=== PATIENT | female | born 1950 | race Caucasian/White ===

== ENCOUNTER 2019-04-07 08:45 | Outpatient (CLI) | payer OTHER | END 2019-04-07 08:50 | disposition home or self-care (01) | LOC: LAB 08:45 | DX: I11.0 Hypertensive heart disease with heart failure (principal); D53.8 Other specified nutritional anemias; E11.8 Type 2 diabetes mellitus with unspecified complications; E78.2 Mixed hyperlipidemia; N39.0 Urinary tract infection, site not specified; E03.8 Other specified hypothyroidism; M06.1 Adult-onset Still's disease; E55.9 Vitamin D deficiency, unspecified ==

== ENCOUNTER 2019-09-30 07:27 | Outpatient (CLI) | payer OTHER | END 2019-09-30 07:40 | disposition home or self-care (01) | LOC: LAB 07:27 | DX: D64.89 Other specified anemias (principal); N39.0 Urinary tract infection, site not specified; R10.84 Generalized abdominal pain; E03.8 Other specified hypothyroidism; E78.49 Other hyperlipidemia; E11.9 Type 2 diabetes mellitus without complications ==

== ENCOUNTER 2019-10-13 09:06 | Outpatient (CLI) | payer OTHER | END 2019-10-13 10:11 | disposition home or self-care (01) | LOC: LAB 09:06 | DX: I10 Essential (primary) hypertension (principal); R79.1 Abnormal coagulation profile; R06.89 Other abnormalities of breathing ==

== ENCOUNTER → 2020-02-16 | Outpatient (CLI) | payer OTHER | END | disposition home or self-care (01) | LOC: MAMO-SONO 10:15 → SONOGRAMA 10:43 | PROVIDERS: ATTEND Physical Medicine & Rehabilitation | DX: M75.41 Impingement syndrome of right shoulder (principal) ==

== ENCOUNTER 2020-05-21 08:18 | Outpatient (CLI) | payer OTHER | END 2020-05-21 08:49 | disposition home or self-care (01) | LOC: LAB 08:18 | PROVIDERS: ATTEND Internal Medicine Endocrinology, Diabetes & Metabolism | DX: E04.8 Other specified nontoxic goiter (principal); I11.0 Hypertensive heart disease with heart failure; D53.8 Other specified nutritional anemias; N39.0 Urinary tract infection, site not specified; E55.9 Vitamin D deficiency, unspecified; E11.9 Type 2 diabetes mellitus without complications; M06.1 Adult-onset Still's disease; E61.2 Magnesium deficiency; E22.2 Syndrome of inappropriate secretion of antidiuretic hormone ==

== ENCOUNTER → 2021-02-04 09:28 | Outpatient (CLI) | payer OTHER | END | disposition home or self-care (01) | LOC: LAB 09:28 | PROVIDERS: ATTEND Internal Medicine Endocrinology, Diabetes & Metabolism | DX: D53.9 Nutritional anemia, unspecified (principal); I10 Essential (primary) hypertension; E04.9 Nontoxic goiter, unspecified; N39.0 Urinary tract infection, site not specified; E78.2 Mixed hyperlipidemia; N36.2 Urethral caruncle; E55.9 Vitamin D deficiency, unspecified; E11.21 Type 2 diabetes mellitus with diabetic nephropathy; R80.9 Proteinuria, unspecified ==

== ENCOUNTER → 2021-06-10 08:39 | Outpatient (CLI) | payer OTHER | END | disposition home or self-care (01) | LOC: LAB 08:39 | PROVIDERS: ATTEND Internal Medicine Gastroenterology | DX: K30 Functional dyspepsia (principal); R10.30 Lower abdominal pain, unspecified ==

== ENCOUNTER 2021-09-21 10:55 | Outpatient (CLI) | payer OTHER | END 2021-09-21 11:07 | disposition home or self-care (01) | LOC: RAD 10:55 | PROVIDERS: ATTEND Physical Medicine & Rehabilitation | DX: M54.59 Other low back pain (principal); M54.2 Cervicalgia; M54.6 Pain in thoracic spine ==

== ENCOUNTER 2021-10-31 07:05 | Outpatient (CLI) | payer OTHER | END 2021-10-31 07:22 | disposition home or self-care (01) | LOC: LAB 07:05 | DX: D64.9 Anemia, unspecified (principal); N39.0 Urinary tract infection, site not specified; R10.9 Unspecified abdominal pain; E03.9 Hypothyroidism, unspecified; E78.5 Hyperlipidemia, unspecified; R80.9 Proteinuria, unspecified; E11.9 Type 2 diabetes mellitus without complications ==

== ENCOUNTER → 2021-11-21 | Outpatient (CLI) | payer OTHER | END | disposition home or self-care (01) | LOC: RAD 12:34 | PROVIDERS: ATTEND Physical Medicine & Rehabilitation | DX: M25.551 Pain in right hip (principal); M54.6 Pain in thoracic spine ==

== ENCOUNTER 2022-02-28 07:33 | Outpatient (CLI) | payer OTHER | END 2022-02-28 07:39 | disposition home or self-care (01) | LOC: LAB 07:33 | PROVIDERS: ATTEND Internal Medicine Cardiovascular Disease | DX: D64.9 Anemia, unspecified (principal); N39.0 Urinary tract infection, site not specified; R10.9 Unspecified abdominal pain; E03.9 Hypothyroidism, unspecified; E78.5 Hyperlipidemia, unspecified; E55.9 Vitamin D deficiency, unspecified; R80.9 Proteinuria, unspecified; E11.9 Type 2 diabetes mellitus without complications ==

== ENCOUNTER 2022-09-19 11:12 | Outpatient (CLI) | payer OTHER | END 2022-09-19 11:19 | disposition home or self-care (01) | LOC: RAD 11:12 | PROVIDERS: ATTEND Physical Medicine & Rehabilitation | DX: M79.671 Pain in right foot (principal); M79.672 Pain in left foot; M54.50 Low back pain, unspecified; M79.641 Pain in right hand; M79.642 Pain in left hand; W19.XXXA Unspecified fall, initial encounter ==

== ENCOUNTER 2023-01-23 07:43 | Outpatient (CLI) | payer OTHER | END 2023-01-23 07:56 | disposition home or self-care (01) | LOC: LAB 07:43 | DX: D64.9 Anemia, unspecified (principal); N39.0 Urinary tract infection, site not specified; R10.9 Unspecified abdominal pain; E03.9 Hypothyroidism, unspecified; E78.5 Hyperlipidemia, unspecified; E55.9 Vitamin D deficiency, unspecified; R80.9 Proteinuria, unspecified; E11.9 Type 2 diabetes mellitus without complications ==

== ENCOUNTER 2023-03-16 07:20 | Outpatient (CLI) | payer OTHER | END 2023-03-16 07:22 | disposition home or self-care (01) | LOC: LAB 07:20 | DX: M81.0 Age-related osteoporosis without current pathological fracture (principal); E55.9 Vitamin D deficiency, unspecified ==

== ENCOUNTER 2023-05-01 07:13 | Outpatient (CLI) | payer OTHER | END 2023-05-01 07:15 | disposition home or self-care (01) | LOC: LAB 07:13 | PROVIDERS: ATTEND Internal Medicine Endocrinology, Diabetes & Metabolism | DX: I10 Essential (primary) hypertension (principal); D53.9 Nutritional anemia, unspecified; N39.0 Urinary tract infection, site not specified; E78.2 Mixed hyperlipidemia; E04.9 Nontoxic goiter, unspecified; E11.9 Type 2 diabetes mellitus without complications; N36.2 Urethral caruncle ==

== ENCOUNTER → 2023-09-28 | Outpatient (CLI) | payer OTHER | END | disposition home or self-care (01) | LOC: RAD 09:41 | PROVIDERS: ATTEND Physical Medicine & Rehabilitation | DX: M25.561 Pain in right knee (principal); M25.562 Pain in left knee ==

== ENCOUNTER 2023-10-01 07:41 | Outpatient (CLI) | payer OTHER | END 2023-10-01 07:42 | disposition home or self-care (01) | LOC: SONOGRAMA 07:41 | PROVIDERS: ATTEND Internal Medicine Gastroenterology | DX: R10.13 Epigastric pain (principal) ==

== ENCOUNTER 2023-11-29 08:11 | Outpatient (CLI) | payer OTHER | END 2023-11-29 08:15 | disposition home or self-care (01) | LOC: RAD 08:11 | PROVIDERS: ATTEND Physical Medicine & Rehabilitation | DX: M25.561 Pain in right knee (principal) ==

== ENCOUNTER 2024-11-28 13:17 | Outpatient (CLI) | payer OTHER | END 2024-11-28 13:32 | disposition home or self-care (01) | LOC: SONOGRAMA 13:17 | PROVIDERS: ATTEND Physical Medicine & Rehabilitation | DX: E04.2 Nontoxic multinodular goiter (principal); N18.2 Chronic kidney disease, stage 2 (mild); M54.2 Cervicalgia; M25.511 Pain in right shoulder; M25.521 Pain in right elbow ==

== ENCOUNTER 2025-04-14 11:40 | Outpatient (CLI) | payer OTHER | END 2025-04-14 11:42 | disposition home or self-care (01) | LOC: RAD 11:40 | PROVIDERS: ATTEND Physical Medicine & Rehabilitation | DX: S90.32XA Contusion of left foot, initial encounter (principal); S90.02XA Contusion of left ankle, initial encounter ==

== ENCOUNTER 2025-05-05 13:27 | Outpatient (CLI) | payer OTHER | END 2025-05-05 13:35 | disposition home or self-care (01) | LOC: RAD 13:27 | PROVIDERS: ATTEND Physical Medicine & Rehabilitation | DX: S93.401A Sprain of unspecified ligament of right ankle, initial encounter (principal); S90.31XA Contusion of right foot, initial encounter ==